=== PATIENT | male | born 1970 | race Caucasian/White ===

== ENCOUNTER 2017-01-07 15:44 | Emergency (ER) | payer OTHER ==
[2017-01-07 15:57] VITALS: TEMP 98.6
[2017-01-07] MEDS ORDERED: KETOROLAC 30 MG/1 ML SDV IVP ONE (16:04)
[2017-01-07] MEDS ORDERED: NS 1,000 ML IV ONE (16:04)
[2017-01-07 16:10] LABS: % IMMATURE GRANULYOCYTES 0.4 % (0.0-1.1); ABSOLUTE IMMATURE GRANULOCYTES 0.04 10^3/uL (0.00-0.10); ADD DIFF? NO; ADD MORPH? NO; ADD SCAN? NO; ATYPICAL LYMPHOCYTE FLAG 0 (0-99); FRAGMENT RBC FLAG 0 (0-99); HEMATOCRIT 44.2 % (40.0-51.0); HEMOGLOBIN 15.7 g/dL (13.7-17.5); LEFT SHIFT FLG 0 (0-99); LIPEMIA HEMOLYSIS FLAG 90 (0-99); MEAN CELL HEMOGLOBIN 31.8 pg (27.9-34.1); MEAN CELL HEMOGLOBIN CONCENTR. 35.5 g/dL (32.4-36.7); MEAN CELL VOLUME 89.7 fL (81.5-99.8); MEAN PLATELET VOLUME 10.1 fL (8.7-11.7); PLATELET CLUMPS FLAG 10 (0-99); PLATELET COUNT 263 10^3/uL (150-400); RED BLOOD CELL COUNT 4.93 10^6/uL (4.40-6.38); RED CELL DISTRIBUTION WIDTH 12.2 % (11.5-15.2)
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
[2017-01-07 16:31] LABS: ANION GAP 16 mEq/L (8-16); CALCIUM 9.4 mg/dL (8.5-10.4); CARBON DIOXIDE 23 mEq/l (22-31); CHLORIDE 107 mEq/L (97-110); CREATININE 1.3 mg/dL (0.7-1.3); GLOMERULAR FILTRATION RATE 59; GLUCOSE 93 mg/dL (70-100); POTASSIUM 4.2 mEq/L (3.5-5.2); SODIUM 146 mEq/L (134-144)
[2017-01-07] MEDS ORDERED: TAMSULOSIN HCL 0.4 MG CAP PO ONE (17:01)
[2017-01-07 17:23] LABS: COLOR YELLOW; LEUKOCYTE ESTERASE,URINE NEGATIVE (NEGATIVE); NITRITE,URINE NEGATIVE (NEGATIVE)
[2017-01-07 17:28] LABS: MUCUS TRACE /lpf (NONE-1+); RBC,URINE 25-50 /hpf (0-3)
[2017-01-07 17:35] VITALS: BP 126/68; PULSE 66; RESP 12; O2SAT 93
== END 2017-01-07 17:35 | disposition home or self-care (01) ==
DX: N20.1 Calculus of ureter (principal); N23 Unspecified renal colic; E86.9 Volume depletion, unspecified
CPT/HCPCS: 96374; J1885